=== PATIENT | female | born 1955 | race Caucasian/White ===

== ENCOUNTER → 2019-06-01 | Outpatient (CLI) | payer OTHER ==
[2019-04-16 15:00] VITALS: BP 139/61
[~2019-06-01] MED LIST: ALEN70TA6 PO; ANAS1TAB PO; APIX5TAB PO; CHOL200059 PO; ESCITALOPRAM OX10 MG PO; FOLI0.4T2 PO; LACT1CAP8 PO; LEVO88TA4 PO; LISI2.5T PO; METO25TA4 PO; MULT-245 PO; PANT40TA77 PO; [UNRECOGNIZED DRUG - OTHER] PO
--- NOTE | 2019-06-04 11:58 | RAD ---
MR#: [id number] Date of Study: 06/01/2019 Ordering Physician: JOSIAH GAN, Referring Physician: JOSIAH GAN, Tech: Rosaura Garcia RVT,[facility] APPROVED REPORT Patient Location : OUT-PATIENT Indications Lower Extremity Edema : Varicose Veins Deep System Deep Venous Thrombosis present : No Greater Saphenous Veins (GSV) Significant venous relux noted in the LEFT GSV at the following levels : Superficial Femoral Junction Findings Grayscale images of the bilateral saphenofemoral junctions and the greater and lesser saphenous veins are grossly unremarkable. No obvious evidence of thrombus on limited images The right great saphenous vein measures 4 mm and the left great saphenous vein measures 2.5 mm and ashanti th of these veins do not show any evidence of reflux. Bilateral lesser saphenous veins do not show any evidence of reflux. Critical Notification Critical Value: No <Conclusion> 1. Negative for reflux in the bilateral greater and lesser saphenous veins. Signed by : Alex Gonzalez, Electronically Approved : 06/01/2019 13:08:09
--- NOTE | 2019-06-04 11:58 | RAD ---
MR#: [id number] Date of Study: 06/01/2019 Ordering Physician: JOSIAH GAN, Referring Physician: JOISAH GAN, Tech: Rosaura Garcia RVT, [facility] APPROVED REPORT Bilateral Lower Extremity Venous Study for DVT Patient Location: OUT-PATIENT Indications Lower Extremity Edema: Vein Imaging (Right) CFV (R): Compressible SFJ (R): Compressible FEM (R): Compressible POP (R): Compressible DFV (R): Compressible PTV (R): Compressible GSV (R): Compressible Peroneals (R): Compressible Vein Imaging (Left) CFV (L): Compressible SFJ (L): Compressible FEM (L): Compressible POP (L): Compressible DFV (L): Compressible PTV (L): Compressible GSV (L): Compressible Peroneals (L): Compressible Findings The bilateral lower extremity deep veins were evaluated for thrombus with color Doppler, spectral and grayscale images. On the right the grayscale images of the common femoral, superficial femoral and popliteal veins do n ot demonstrate any evidence of thrombus and these veins appear to be compressible. The below-knee vei ns were not well visualized but grossly appear to be compressible. Spectral imaging and color Doppler do not reveal any evidence of obstruction to flow with normal respirophasic variation above the knee . Below the knee there is spontaneous flow noted. On the left, the grayscale images of the common femoral, superficial femoral and popliteal veins do n ot demonstrate any evidence of thrombus and these veins appear to be compressible. The below-knee vei ns again were not well visualized but grossly appear to be compressible. Spectral imaging and color D oppler do not reveal any evidence of obstruction to flow with normal respirophasic variation above th e knee. The below-knee veins demonstrate spontaneous flow. Critical Notification Critical Value: No <Conclusion> Negative for DVT in the bilateral lower extremities. Signed by : Alex Gonzalez, Electronically Approved : 06/01/2019 13:09:25
== END | disposition home or self-care (01) ==
LOC: US 07:12
PROVIDERS: ATTEND Internal Medicine Cardiovascular Disease
DX: I83.93 Asymptomatic varicose veins of bilateral lower extremities (principal); M79.89 Other specified soft tissue disorders
CPT/HCPCS: 93970